=== PATIENT | female | born 1970 | race Caucasian/White ===

== ENCOUNTER 2016-04-30 09:10 | Observation (INO) | payer MEDICARE ==
[~2016-04-30] VITALS: Ht 160 cm; Wt 40.9 kg
[~2016-04-30 09:10] MED LIST: CELEXA 20MG20 MG/TAB PO
[2016-04-30] MEDS ORDERED: CELEXA40 MG PO (10:11)
[2016-04-30 10:12] LABS: BASO # 0.1 (0.0-0.2); BASO % 0.6 % (0.0-2.0); EOS % 0.4 % (0-4.0); GRAN # 8.5 (1.4-6.5); GRAN % 80.1 % (42.2-75.2); HEMATOCRIT 37.6 % (37.0-47.0); HEMOGLOBIN 12.7 g/dl (12.5-16.0); LYMPH # 1.5 (1.2-3.4); LYMPH % 14.3 % (20.0-51.0); MEAN CELL VOLUME 98 fl (80.0-100.0); MEAN CORPUSCULAR HEMOGLOBIN 33 pg (27.0-31.0); MEAN CORPUSCULAR HGB CONC 34 g/dl (33.0-37.0); MEAN PLATELET VOLUME 12.8 fl (7.4-10.4); MONO # 0.4 (0.1-0.6); MONO % 4.1 % (1.7-9.3); PLATELET COUNT 176 K/mm3 (130-400); RED BLOOD COUNT 3.85 M/mm3 (4.10-5.30); REDCELL DISTRIBUTION WIDTH-CV 13.2 % (11.5-14.5); WHITE BLOOD COUNT 10.6 K/mm3 (4.8-10.8)
[2016-04-30] MEDS ORDERED: SENNA8.6 MG PO (10:13)
[2016-04-30 10:20] LABS: ADJUSTED CALCIUM 9.1 mg/dL (8.4-10.2); ALBUMIN 4.4 gm/dL (3.5-5.0); BILIRUBIN,TOTAL 0.8 mg/dL (0.0-1.0); CALCIUM 9.4 mg/dL (8.4-10.2); CREATININE, serum 0.54 mg/dL (0.52-1.25); MAGNESIUM 1.6 mg/dL (1.6-2.3); POTASSIUM 4.3 mmol/L (3.4-5.0); TOTAL PROTEIN 7.6 gm/dL (6.4-8.2)
[2016-04-30 11:48] LABS: PH 9 (5-8); SQUAMOUS EPITHELIAL None Seen /hpf; URINE APPEARANCE Cloudy; URINE BACTERIA Rare /hpf; URINE BILIRUBIN Negative (NEGATIVE); URINE BLOOD Negative (NEGATIVE); URINE COLOR Yellow; URINE GLUCOSE Negative (NEGATIVE); URINE KETONE Negative (NEGATIVE); URINE UROBILINOGEN Negative (NEGATIVE); URINE WBC 0-2 /hpf
[2016-04-30 14:27] VITALS: BP 105/69; PULSE 53; TEMP 98.6
[2016-04-30 17:14] VITALS: BP 104/67; PULSE 60; TEMP 98.4
[2016-04-30 19:51] VITALS: BP 99/62; PULSE 71; TEMP 98.4
[2016-05-01 01:06] VITALS: BP 103/64; PULSE 72; TEMP 98.6
[2016-05-01 04:58] VITALS: BP 114/66; PULSE 78; TEMP 98
[2016-05-01 07:44] VITALS: BP 123/69; PULSE 57; TEMP 98.7
[2016-05-01 07:55] LABS: BASO % 0.5 % (0.0-2.0); EOS # 0.1 (0.0-0.7); EOS % 1.3 % (0-4.0); GRAN # 4.1 (1.4-6.5); GRAN % 64.9 % (42.2-75.2); LYMPH # 1.8 (1.2-3.4); LYMPH % 28.3 % (20.0-51.0); MEAN CELL VOLUME 100 fl (80.0-100.0); MEAN CORPUSCULAR HGB CONC 33 g/dl (33.0-37.0); MEAN PLATELET VOLUME 13.3 fl (7.4-10.4); MONO # 0.3 (0.1-0.6); MONO % 4.7 % (1.7-9.3); PLATELET COUNT 151 K/mm3 (130-400); RED BLOOD COUNT 3.35 M/mm3 (4.10-5.30); REDCELL DISTRIBUTION WIDTH-CV 13.4 % (11.5-14.5); WHITE BLOOD COUNT 6.3 K/mm3 (4.8-10.8)
[2016-05-01 08:04] LABS: HEMATOCRIT 33.5 % (37.0-47.0); HEMOGLOBIN 11.2 g/dl (12.5-16.0); MEAN CORPUSCULAR HEMOGLOBIN 33 pg (27.0-31.0)
[2016-05-01 08:17] LABS: CALCIUM 8.6 mg/dL (8.4-10.2); CREATININE, serum 0.54 mg/dL (0.52-1.25); POTASSIUM 3.6 mmol/L (3.4-5.0)
[2016-05-01 11:59] VITALS: BP 118/71; PULSE 59; TEMP 98.9
[2016-05-01 15:32] VITALS: BP 121/64; PULSE 61; TEMP 99
== END 2016-05-01 17:21 | disposition home or self-care (01) ==
LOC: COL.ER 09:10 → JCC 12:58 → COL.ER 12:58 → JCC 05-01 17:21
PROVIDERS: Emergency Medicine; Surgery
DX: K56.60 Unspecified intestinal obstruction (principal)
CPT/HCPCS: G0378; J1170; J2270; J2405; J2550; J3411; J7030; J7120; Q9967

== ENCOUNTER 2016-08-23 13:57 | Emergency (ER) | payer MEDICARE ==
[~2016-08-23] VITALS: Ht 160 cm; Wt 41.4 kg
[~2016-08-23 13:57] MED LIST changes: +CELEXA40 MG PO; +SENNA8.6 MG PO
[2016-08-23 13:59] VITALS: TEMP 97.8
[2016-08-23] MEDS ORDERED: MULTIPLE VITAMI1 CAP PO (14:18)
[2016-08-23] MEDS ORDERED: CALCIUM 600MG+D1 TAB PO (14:18)
[2016-08-23] MEDS ORDERED: NORCO 325 MG-51 TAB PO (16:15)
[2016-08-23 16:21] VITALS: BP 113/74; PULSE 64
== END 2016-08-23 16:30 | disposition home or self-care (01) ==
LOC: COL.ER 13:57
DX: S52.531A Colles' fracture of right radius, initial encounter for closed fracture (principal); W17.89XA Other fall from one level to another, initial encounter; Y92.009 Unspecified place in unspecified non-institutional (private) residence as the place of occurrence of the external cause; R63.0 Anorexia; M81.0 Age-related osteoporosis without current pathological fracture
CPT/HCPCS: J1170; J2765; J3010; Q4050

== ENCOUNTER 2016-11-01 11:00 | Emergency (ER) | payer MEDICARE ==
[~2016-11-01] VITALS: Ht 160 cm; Wt 39.4 kg
[~2016-11-01 11:00] MED LIST changes: +CALCIUM 600MG+D1 TAB PO; +MULTIPLE VITAMI1 CAP PO; +NORCO 325 MG-51 TAB PO
[2016-11-01 11:14] VITALS: TEMP 98.4
[2016-11-01] MEDS ORDERED: OMEGA-3 1000 MG1 CAP PO (11:36)
[2016-11-01] MEDS ORDERED: VITAMIN B COMPL1 SGL PO (11:36)
[2016-11-01 12:09] LABS: HEMATOCRIT 38.9 % (37.0-47.0); HEMOGLOBIN 13.2 g/dl (12.5-16.0); MEAN CELL VOLUME 97 fl (80.0-100.0); MEAN CORPUSCULAR HEMOGLOBIN 33 pg (27.0-31.0); MEAN CORPUSCULAR HGB CONC 34 g/dl (33.0-37.0); PLATELET COUNT 145 K/mm3 (130-400); RED BLOOD COUNT 4.03 M/mm3 (4.10-5.30); WHITE BLOOD COUNT 3.7 K/mm3 (4.8-10.8)
[2016-11-01 12:33] LABS: ADJUSTED CALCIUM 8.7 mg/dL (8.4-10.2); ALBUMIN 3.7 gm/dL (3.5-5.0); BILIRUBIN,TOTAL 0.5 mg/dL (0.0-1.0); CALCIUM 8.5 mg/dL (8.4-10.2); CREATININE, serum 0.71 mg/dL (0.52-1.25); POTASSIUM 3.8 mmol/L (3.4-5.0); TOTAL PROTEIN 6.6 gm/dL (6.4-8.2)
[2016-11-01 12:34] LABS: ADD PATHOLOGY DIFF REVIEW NO
[2016-11-01 13:26] LABS: PH 6 (5-8); SQUAMOUS EPITHELIAL None Seen /hpf; URINE APPEARANCE Clear; URINE BACTERIA None Seen /hpf; URINE BILIRUBIN Negative (NEGATIVE); URINE BLOOD 1+ (NEGATIVE); URINE COLOR Yellow; URINE GLUCOSE Negative (NEGATIVE); URINE KETONE Trace (NEGATIVE); URINE UROBILINOGEN Negative (NEGATIVE); URINE WBC 0-2 /hpf
[2016-11-01 13:37] LABS: BAND 57 % (0-10); MYELOCYTE 3 % (0-0); NEUTROPHILS 15 % (42.0-75.2); PLATELET ESTIMATE NORMAL (NORMAL); TOTAL CELLS COUNTED 100
[2016-11-01 14:32] VITALS: BP 117/64; PULSE 56
== END 2016-11-01 14:35 | disposition home or self-care (01) ==
LOC: COL.ER 11:00
PROVIDERS: Nurse Practitioner
DX: K29.70 Gastritis, unspecified, without bleeding (principal); K52.9 Noninfective gastroenteritis and colitis, unspecified; F32.9 Major depressive disorder, single episode, unspecified; Z87.19 Personal history of other diseases of the digestive system; Z90.89 Acquired absence of other organs; Z98.890 Other specified postprocedural states
CPT/HCPCS: J7030; Q9967

== ENCOUNTER 2018-04-27 09:02 | Outpatient (CLI) | payer MEDICARE ==
[~2018-04-27] VITALS: Ht 160 cm; Wt 46.2 kg
[~2018-04-27 09:02] MED LIST changes: +OMEGA-3 1000 MG1 CAP PO; +VITAMIN B COMPL1 SGL PO
[2018-04-27 09:38] VITALS: BP 108/67; PULSE 58; TEMP 98.3
--- NOTE | 2018-04-27 10:27 | NUR ---
Discontinued INT intact. Sat for 30 minutes post Reclast infusion prior to discharge.
== END 2018-04-27 10:26 | disposition home or self-care (01) ==
LOC: EUO 09:02
DX: M81.0 Age-related osteoporosis without current pathological fracture (principal)
CPT/HCPCS: J3489